=== PATIENT | female | born 1970 | race African-American/Black ===

== ENCOUNTER 2017-02-22 01:26 | Emergency (ER) | payer MEDICAID ==
[~2017-02-22] VITALS: Ht 165.1 cm; Wt 50.0 kg
[2017-02-22 06:27] VITALS: BP 127/75
== END 2017-02-22 07:18 | disposition home or self-care (01) ==
LOC: ER 01:26
DX: S20.211A Contusion of right front wall of thorax, initial encounter (principal); T74.91XA Unspecified adult maltreatment, confirmed, initial encounter; H91.90 Unspecified hearing loss, unspecified ear; W50.0XXA Accidental hit or strike by another person, initial encounter; Y93.89 Activity, other specified; Y92.89 Other specified places as the place of occurrence of the external cause; Y99.8 Other external cause status
CPT/HCPCS: 71101; 99284